=== PATIENT | female | born 1950 | race Caucasian/White ===

== ENCOUNTER → 2022-01-07 | Outpatient (CLI) | payer MEDICARE ==
[2022-01-07 10:31] VITALS: BP 136/82; PULSE 74; RESP 18; TEMP 98
--- NOTE | 2022-01-07 10:36 | P.CON ---
Consult Note - . Consult date: 01/07/22 Assessment/Plan:: HISTORY OF PRESENT ILLNESS: 71 year old female with at side as a referral from [facility] presents today with lower back pain due to scoliosis, spinal stenosis, bilateral neuroforaminal stenoses and facet arthropathy for evaluation. Patient states pain level is 7 out of 10 intensity, dull, achy, constant in the middle and lower aspects of the lumbar spine with occasional radiation of sharp pain down the right hip and right lower extremity. Pain is provoked with lifting, bending and walking for periods of 30 minutes or more. Pain is relieved with medications, topicals, injections in the past, physical therapy 7 years ago, he size regimen, massage in the past, repositioning and rest. PMH: HTN, Hyperlipidemia, GERD, Neuropathy, OA PSH: Cholecystectomy SH: 1PPD Tobacco User. No ETOH Use. No illicit drug use. . FH: Non contributory All: See list Meds: See list REVIEW OF ORGAN SYSTEMS: CONSTITUTIONAL: No fevers or chills. No recent weight loss. HEENT: No visual acuity loss, eye pain, difficulties with hearing. No nosebleeds. No difficulty swallowing. RESPIRATORY: Denies any troubles with breathing or dyspnea on exertion. CARDIOVASCULAR: Denies any chest pain, palpitations, or recent heart attacks. GASTROINTESTINAL: Denies fatty food intolerance. Has change in bowel habits and gas bloat. GENITOURINARY: Denies any blood in urine. Has increased urinary frequency. NEUROLOGICAL: + numbness and tingling along the distal extremities. No seizure disorders or headaches. MUSCULOSKELETAL: + back pain SKIN: No skin cancer. No rash. PSYCHIATRIC: Denies current depression or suicidal thoughts. ENDOCRINE: Denies current thyroid disorders. Denies any blood sugar glucose intolerance. HEME/LYMPHATIC: Denies any lumps and bumps around the neck. History of deep venous thrombosis. ALLERGY/IMMUNOLOGY: No immunoglobulin therapy. No immune deficiencies. BREAST: Denies current breast lumps, pain or nipple discharge. Physical Examinations : Constitutional : Cooperative , not in acute distress . HEENT: Neck supple. No Lymphadenopathy. Normal thyroid size . Eyes no ptosis , no icterus, no photophobia . Hearing intact. Normal oropharynx. No Thrush. Respiratory : Chest clear to auscultations bilaterally. No wheezing. No rhonchi. Cardiovascular : Regular rate and rhythm , S1 / S2. No S3 . No S4. Gastrointestinal : Abdomen soft. No tenderness. Bowel sounds x 4. No organomegaly . Genitourinary : Deferred. Neurologic : Cranial nerve II to XII intact. No focal neurological deficits. Psychiatric : alert & oriented x 3. Matching mood & appropriate affect. Judgment & insight intact. Lymphatic No Lymphadenopathy. Musculoskeletal : Cervical Spine Motor strength in the deltoid and biceps: Normal right side. Normal Left side Motor strength biceps and the wrist extensors: Normal right side . Normal left side Motor strength in the triceps muscle: Normal right side. Normal left side Deep tendon reflexes: Normal at the biceps. Normal at Brachioradialis. Normal at triceps Cervical facet loading test: positive bilaterally Spurling test: positive bilaterally Neck distraction test: positive bilaterally Noemi sign: positive bilaterally Lumbar spine Motor strength lower extremities ,thigh and legs 5/5 Right side , 5/5 Left side Deep tendon reflexes : Normal Knee Jerk. Normal Ankle Jerk Vertebral body tenderness over L3, L4, L5 Lumbar facet Loading Test: positive Right / positive Left Range of motion of the lumbar spine Flexion 30 degrees, extension 10 degrees Straight Leg Raise test: Left/ Right positive at 30 degree Erika test: positive right / positive left. Severe tenderness over the Sacroiliac joint on the Right / Left sides Gaenslen test: positive bilaterally Seated flexion test: positive bilaterally. Assessment/ Plan : Recommendation of LESI of the L4-L5. May need a series of 3, within a six-month period, to obtain optimal pain relief. Risks, benefits of procedure discussed and patient verbalized understanding. Denies aspirin or anti- coagulant use. Denies medical history of diabetes mellitus. All questions answered. I have spent greater than 50 minutes on patient care today. Dr Lopez was available by phone for the evaluation of this patient. The time was used to review the medical records including relevant urine studies and Prescription history (MAPs), review of the available imaging, evaluation and examination of the patient, coordination of care with the medical staff and if applicable referring physicians, as well as creation of the medical record PQRS Measure Charge Sheet Mode of Arrival: Ambulatory - Pain Location Lower Back Non-Pharmacological Interventions: Chiropractic Treatment, Inactivity, Massage, Physical Therapy, Position/Reposition, Stretching Pharmacological Interventions: PRN Medication, Topical Medication PQRS Narrative: Blood Pressure 136/82 Pain Intensity [Lower Back] 7 Scale Used Numeric (1 - 10) Hx Alcohol Use (MH) Yes: Very rare Home Medications: Ambulatory Orders Furosemide [Lasix] 20 mg PO DAILY 01/06/22 Gabapentin 600 mg PO TID 01/06/22 HYDROcodone/APAP 10-325MG [[place] 10-325] 1 tab PO TID PRN 01/06/22 Ibuprofen [Motrin] 400 mg PO DIRECTED PRN 01/06/22 Omeprazole 20 mg PO DAILY 01/06/22 Simvastatin [Zocor] 20 mg PO DAILY 01/06/22 lisinopriL 40 mg PO DAILY 01/06/22
== END ==
LOC: PNWHC3 09:31
PROVIDERS: ATTEND Physician Assistant Medical
DX: M54.50 Low back pain, unspecified (principal); I10 Essential (primary) hypertension; E78.5 Hyperlipidemia, unspecified; K21.9 Gastro-esophageal reflux disease without esophagitis; M19.90 Unspecified osteoarthritis, unspecified site; Z79.1 Long term (current) use of non-steroidal anti-inflammatories (NSAID); Z79.899 Other long term (current) drug therapy; Z88.5 Allergy status to narcotic agent; Z88.1 Allergy status to other antibiotic agents; Z88.8 Allergy status to other drugs, medicaments and biological substances
CPT/HCPCS: 99211

== ENCOUNTER → 2022-02-25 | Outpatient (CLI) | payer MEDICARE ==
[2022-02-25 10:50] VITALS: BP 122/77; PULSE 71; RESP 18
--- NOTE | 2022-02-25 11:10 | P.PN ---
Subjective Progress Note Date: 02/25/22 Principal diagnosis: A 71 yr old female with at side with a history of severe and chronic low back pain secondary to lumbar degenerative disc diseases and lumbar spondylosis with facet arthropathy presents today for evaluation status post LESI L4-L5 #1. She states she experienced 75% pain relief for 4 days status post procedure. Pain level is currently at 7 out of 10 in intensity, dull, achy in the lower aspects of her lumbar spine right side greater than left with occasional radiation of sharp, shooting pain down the right lower extremity. Pain escalates as high as 8 out of 10 in intensity with activity. Pain is alleviated with medications, lidocaine patches, injections and rest. Patient does not try ice, heat, physical therapy or chiropractic treatments. Interventional pain procedures completed include LESI L4-5 Patient is currently on naproxen Patient denies any side effects of the medication(s), denies excessive drowsiness or sleepiness, denies suicidal ideation and reports that the current pain medication is helping to control the pain and improve activities of daily living. Patient denies any motor or sensory deficits. Patient denies any fever or night sweats, denies any change in the bowel movements or urination. Physical Examination: -Constitutional: Cooperative. Not in acute distress . -HEENT: Neck is supple. No lymphadenopathy. No thyromegaly. Normal thyroid size. Eyes: No ptosis , no icterus, no photophobia. ENT: No auditory deficits. Normal oropharynx. No Thrush. - Respiratory: Chest clear to auscultations bilaterally. No wheezing. No rhonchi. - Cardiovascular: Regular rate and rhythm. S1 / S2 , no S3 , no S4. - Gastrointestinal: Abdomen soft no tenderness. Bowel sounds positive in all four quadrants. No organomegaly. - Genitourinary: Deferred. - Neurologic: Cranial nerve II to XII intact. No focal neurological deficits. - Psychatric: Alert & oriented x 3. Matching mood & appropriate affect. Judgment and insight intact. - Lymphatic: No Lymphadenopathy. - Musculoskeletal: Cervical spine: Muscle bulk/ tone/ strength in the bilateral upper extremities normal. Facet loading test cervical area positive. Lumbar spine: Motor bulk/ tone/ strength lower extremities , thigh and legs : 5/5 Deep tendon reflexes : Normal Knee Jerk. Normal Ankle Jerk . Vertebral body tenderness to palpation over L4 Lumbar Facet Loading Test positive Straight Leg Raise: positive at 30 degrees right side/ left side Gaenslen's Test positive Sacral spine : Severe tenderness over the Sacroiliac joint: right side / left side Range of motion: Flexion of the lumbar spine <60 degrees Range of motion: Extension of the lumbar spine <20 degrees Gaenslen's Test positive Erika test: positive right side / left side Assessment and plan: Chronic low back pain secondary to lumbar degenerative disc disease , lumbar spondylosis with facet arthropathy without myelopathy Recommendation of right TFESI L4-L5. May need a series of injections, up to 3 within a six-month period, for optimal pain relief. Risks, benefits of procedure discussed and patient verbalized understanding. Eyes anticoagulants use and history of diabetes. All patient questions answered MAPS reviewed and it was appropriate. Prescription for diclofenac gel use as indicated with 1 refill I have spent 31 minutes on patient care today. Dr Lopez was available by phone for the evaluation of this patient. The time was used to review the medical records including relevant urine studies and Prescription history (MAPs), review of the available imaging, evaluation and examination of the patient, coordination of care with the medical staff and if applicable referring physicians, as well as creation of the medical record Objective - Vital Signs Vital signs: Vital Signs Temp Pulse 71 02/25/22 10:43 Resp 18 02/25/22 10:43 BP 122/77 02/25/22 10:43 Pulse Ox 95 02/25/22 10:43 Intake & Output 02/24/22 02/25/22 02/25/22 18:59 06:59 18:59 Weight 65.771 kg PQRS Measure Charge Sheet Mode of Arrival: Ambulatory - Pain Location Lower Back Non-Pharmacological Interventions: Home Exercise, Inactivity, Stretching Pharmacological Interventions: Epidural, PRN Medication PQRS Narrative: Blood Pressure 122/77 Pain Intensity [Lower Back] 7 Scale Used Numeric (1 - 10) Hx Alcohol Use (MH) Yes: Very rare Home Medications: Ambulatory Orders Furosemide [Lasix] 20 mg PO DAILY 01/06/22 Gabapentin 600 mg PO TID 01/06/22 HYDROcodone/APAP 10-325MG [[place] 10-325] 1 tab PO TID PRN 01/06/22 Ibuprofen [Motrin] 400 mg PO DIRECTED PRN 01/06/22 Omeprazole 20 mg PO DAILY 01/06/22 Simvastatin [Zocor] 20 mg PO DAILY 01/06/22 lisinopriL 40 mg PO DAILY 01/06/22
== END ==
LOC: PNWHC3 09:49
PROVIDERS: ATTEND Specialist
DX: M51.36 Other intervertebral disc degeneration, lumbar region (principal); M47.816 Spondylosis without myelopathy or radiculopathy, lumbar region; G89.29 Other chronic pain; Z88.5 Allergy status to narcotic agent; Z88.1 Allergy status to other antibiotic agents; Z88.8 Allergy status to other drugs, medicaments and biological substances
CPT/HCPCS: 99211